=== PATIENT | female | born 1995 ===

== ENCOUNTER 2016-11-17 21:50 | Outpatient (CLI) | payer OTHER ==
[~2016-11-17] VITALS: Ht 165.1 cm; Wt 66.4 kg
[~2016-11-17 21:50] MED LIST: MOTRIN 800800 MG/TAB PO; PERCOCET 325 MG1 TA2 PO
== END 2016-11-17 23:05 | disposition home or self-care (01) ==
LOC: LDRO 21:50
DX: O42.912 Preterm premature rupture of membranes, unspecified as to length of time between rupture and onset of labor, second trimester (principal); Z3A.21 21 weeks gestation of pregnancy

== ENCOUNTER 2017-03-10 17:10 | Inpatient (IN) | payer OTHER ==
[~2017-03-10] VITALS: Ht 162.6 cm; Wt 77.7 kg
[2017-03-10] VITALS (10 sets, daily range): BP systolic 114–144; BP diastolic 55–87; PULSE 71–90; TEMP 97.6–97.9
[2017-03-10] MEDS ORDERED: PRENATAL1 TA7 PO (17:16)
[2017-03-10 17:41] LABS: BASO % 0.2 % (0.0-2.0); EOS # 0.1 (0.0-0.7); EOS % 0.6 % (0-4.0); GRAN # 7.9 (1.4-6.5); GRAN % 73.2 % (42.2-75.2); HEMATOCRIT 40.1 % (37.0-47.0); HEMOGLOBIN 13.6 g/dl (12.5-16.0); LYMPH % 18.1 % (20.0-51.0); MEAN CELL VOLUME 90 fl (80.0-100.0); MEAN CORPUSCULAR HEMOGLOBIN 31 pg (27.0-31.0); MEAN CORPUSCULAR HGB CONC 34 g/dl (33.0-37.0); MEAN PLATELET VOLUME 9.6 fl (7.4-10.4); MONO # 0.8 (0.1-0.6); MONO % 7.3 % (1.7-9.3); PLATELET COUNT 172 K/mm3 (130-400); RED BLOOD COUNT 4.45 M/mm3 (4.10-5.30); REDCELL DISTRIBUTION WIDTH-CV 11.9 % (11.5-14.5); WHITE BLOOD COUNT 10.8 K/mm3 (4.8-10.8)
[2017-03-11 05:07] VITALS: BP 119/62; PULSE 77; TEMP 98.2
[2017-03-11 06:45] VITALS: BP 100/52; PULSE 74; TEMP 97.9
[2017-03-11] MEDS ORDERED: IBU600 MG PO (08:34)
[2017-03-11] MEDS ORDERED: PERCOCET 325 MG1 TA2 PO (08:35)
[2017-03-11 11:45] VITALS: BP 122/63; PULSE 73; TEMP 97.6
[2017-03-11 17:30] VITALS: BP 118/69; PULSE 77; TEMP 98.6
== END 2017-03-11 20:15 | disposition home or self-care (01) | DRG 775 ==
LOC: LDR 17:10 → OB 17:10
PROVIDERS: Obstetrics & Gynecology
PROC: 10E0XZZ Delivery of Products of Conception, External Approach (ICD-10-PCS; principal; 2017-03-10)
DX: O62.3 Precipitate labor (principal); O36.0130 Maternal care for anti-D [Rh] antibodies, third trimester, not applicable or unspecified; Z3A.37 37 weeks gestation of pregnancy; Z37.0 Single live birth
CPT/HCPCS: J2590; J2791

== ENCOUNTER → 2017-03-13 | Outpatient (CLI) | payer OTHER ==
[~2017-03-13] MED LIST changes: +IBU600 MG PO; +PRENATAL1 TA7 PO
== END ==
LOC: LAC 10:31
DX: Z39.1 Encounter for care and examination of lactating mother (principal); Z71.89 Other specified counseling